=== PATIENT | female | born 1930 | race African-American/Black ===

== ENCOUNTER 2016-05-09 10:29 | Inpatient (IN) | payer OTHER, BC, MEDICAID ==
[~2016-05-09] VITALS: Ht 152.4 cm; Wt 61.2 kg
[2016-05-09] MEDS ORDERED: METHYLPREDNISOLONE SOD SUCC 125 MG/2 ML VIAL IV STA (11:27)
[2016-05-09] MEDS ORDERED: IPRATROPIUM BROMIDE (0.02%) 0.5MG/2.5ML NEB HHN STA (11:27)
[2016-05-09] MEDS ORDERED: ALBUTEROL (0.083%) 2.5MG/3ML NEB HHN STA (11:27)
[2016-05-09] MEDS ORDERED: IOHEXOL-350 100 ML BOTTLE ONE (11:37)
[2016-05-09] MEDS ORDERED: SODIUM CHLORIDE 0.9% 10ML VIAL ONE (11:37)
[2016-05-09 11:50] LABS: BASOPHILS % 0.6 % (0.0-2.0); EOSINOPHILS % 0.2 % (0.0-5.0); HEMATOCRIT. 39.1 % (36.0-48.0); HEMOGLOBIN. 12.5 g/dL (12.0-16.0); LYMPHOCYTES % 9.3 % (20.0-50.0); MEAN CORPUSCULAR HEMOGLOBIN 26.9 pg (28.0-32.0); MEAN CORPUSCULAR HGB CONC 31.8 g/dL (31.0-37.0); MEAN CORPUSCULAR VOLUME 84.4 fL (81.0-99.0); MEAN PLATELET VOLUME 8.5 fl (7.4-10.4); MONOCYTES % 8.9 % (2.0-8.0); PLATELET 393 x1000/uL (130-400); RED BLOOD CELL COUNT 4.64 mill/uL (4.2-5.4); RED CELL DISTRIBUTION WIDTH 16.4 % (11.6-14.6); WHITE BLOOD COUNT 17.1 x1000/uL (4.5-11.0)
[2016-05-09 11:55] LABS: BG BASE EXCESS -4.9 mmol/L (-2.0-2.0); BG CARBOXYHEMOGLOBIN 0.9 % (0.5-1.5); BG DEOXYHEMOGLOBIN 10.6 % (0.0-5.0); BG FRACTION INSPIRED OXYGEN 21; BG HCO3 ACT 18.3 mmol/L (22.0-26.0); BG METHEMOGLOBIN 0.2 % (0.0-1.5); BG OXYGEN SATURATION 89.3 % (92.0-98.5); BG OXYHEMOGLOBIN 88.3 % (94.0-97.0); BG PCO2 28.8 mmHg (35.0-45.0); BG PO2 56.1 mmHg (75.0-100.0); BG SAMPLE SITE RIGHT RADIAL; BG TOTAL HEMOGLOBIN 13.5 g/dL (12.0-18.0); BG VENT MODE ROOM AIR
[2016-05-09 12:08] LABS: ALANINE AMINOTRANSFERASE 17 IU/L (13-61); ALBUMIN 2.5 g/dL (3.4-5.0); ANION GAP 17; CALCIUM 9.1 mg/dL (8.5-10.1); CARBON DIOXIDE 22 mEq/L (21-32); CHLORIDE 105 mEq/L (98-107); ETHANOL BLOOD < 10 mg/dL; INDEX HEMOLYSI 2 (1-3); INDEX ICTERIC 1 (1-4); INDEX LIPEMIC 1 (1-3); NT PRO B-TYPE NATRIURETIC PEP 1007 pg/mL (5-125); TROPONIN I < 0.02 ng/mL (0.00-0.04); UREA NITROGEN BLOOD 16 mg/dL (7-21); eGFR > 60 mL/min (>60)
[2016-05-09 12:30] LABS: D-DIMER 3.43 mg/L FEU (<0.50); INR 1.2; PROTHROMBIN TIME 12.8 sec
[2016-05-09 14:00] LABS: *AMPHETAMINES SCREEN URINE NEGATIVE (NEGATIVE); *BARBITURATES SCREEN URINE PRESUMTIVE POSITIVE (NEGATIVE); *BENZODIAZEPINES SCREEN URINE NEGATIVE (NEGATIVE); *COCAINE SCREEN URINE NEGATIVE (NEGATIVE); CANNABINOID URINE SCREEN NEGATIVE (NEGATIVE); ECSTASY MDMA SCREEN URINE NEGATIVE (NEGATIVE); METHADONE URINE SCREEN NEGATIVE (NEGATIVE); OPIATES URINE SCREEN PRESUMTIVE POSITIVE (NEGATIVE); PHENCYCLIDINE URINE SCREEN NEGATIVE (NEGATIVE)
[2016-05-09] MEDS ORDERED: LEVOFLOXACIN 750MG PREMIX 150 ML IV NR (15:15)
[2016-05-09] MEDS ORDERED: ALBUTEROL (0.5%) 2.5MG/0.5ML NEB HHN ONE (18:00)
[2016-05-09 20:40] VITALS: BP 131/89
[2016-05-09] MEDS ORDERED: VANCOMYCIN 1 G PREMIX 200 ML IV SCH (21:30)
[2016-05-09] MEDS ORDERED: ACETAMINOPHEN 325MG TABLET PO PRN (21:30)
[2016-05-09] MEDS ORDERED: ONDANSETRON HCL 4MG/2ML VIAL IV PRN (21:30)
[2016-05-09] MEDS ORDERED: CLONIDINE 0.1MG TABLET PO PRN (21:30)
[2016-05-09] MEDS ORDERED: HYDROCODONE/ACETAMINOPHEN 5/325MG TABLET PO PRN (21:30)
[2016-05-09] MEDS: ENOXAPARIN 40MG/0.4ML SYR SUBCUT SCH (22:15)
[2016-05-09] MEDS ORDERED: VANCOMYCIN 1250MG in DEXTROSE 5% WATER 250ML IV NR (23:00)
[2016-05-09] MEDS: IPRATROPIUM/ALBUTEROL 0.5-3(2.5)MG/3ML NEB INH PRN (23:36)
[2016-05-09 23:49] VITALS: BP 112/92
[2016-05-10 00:05] LABS: ANION GAP 16; CALCIUM 8.9 mg/dL (8.5-10.1); CARBON DIOXIDE 22 mEq/L (21-32); CHLORIDE 101 mEq/L (98-107); CREATINE KINASE 243 IU/L (26-192); INDEX HEMOLYSI 4 (1-3); INDEX ICTERIC 1 (1-4); INDEX LIPEMIC 1 (1-3); TROPONIN I < 0.02 ng/mL (0.00-0.04); UREA NITROGEN BLOOD 20 mg/dL (7-21); eGFR > 60 mL/min (>60)
[2016-05-10] MEDS ORDERED: INFLUENZA VIRUS VACCINE 0.5ML SYR IM ONE (00:15)
[2016-05-10] MEDS ORDERED: PNEUMOCOCCAL 23-VAL P-SAC VAC 0.5 ML IM ONE (00:15)
[2016-05-10] MEDS ORDERED: ATOR40TA70 PO (01:12)
[2016-05-10] MEDS ORDERED: RISP0.2514 PO (01:12)
[2016-05-10] MEDS ORDERED: [UNRECOGNIZED DRUG - REMARK] (01:12)
[2016-05-10] MEDS ORDERED: SULI200T4 PO (01:12)
[2016-05-10] MEDS: IPRATROPIUM/ALBUTEROL 0.5-3(2.5)MG/3ML NEB INH PRN ×2 (03:51→08:22)
[2016-05-10 04:00] VITALS: BP 141/104
[2016-05-10 06:33] LABS: HEMATOCRIT. 36.6 % (36.0-48.0); HEMOGLOBIN. 11.8 g/dL (12.0-16.0); MEAN CORPUSCULAR HEMOGLOBIN 26.7 pg (28.0-32.0); MEAN CORPUSCULAR HGB CONC 32.3 g/dL (31.0-37.0); MEAN CORPUSCULAR VOLUME 82.7 fL (81.0-99.0); MEAN PLATELET VOLUME 7.9 fl (7.4-10.4); PLATELET 372 x1000/uL (130-400); RED BLOOD CELL COUNT 4.43 mill/uL (4.2-5.4); WHITE BLOOD COUNT 16.7 x1000/uL (4.5-11.0)
[2016-05-10 07:14] LABS: CREATINE KINASE 361 IU/L (26-192); INDEX HEMOLYSI 2 (1-3); INDEX ICTERIC 1 (1-4); INDEX LIPEMIC 1 (1-3); LDL CHOLESTEROL 70 mg/dL (5-100); TRIGLYCERIDE 94 mg/dL (0-150)
[2016-05-10 07:16] LABS: DIFFERENTIAL COMMENT 1
[2016-05-10 07:21] LABS: HDL CHOLESTEROL 56 mg/dL (40-59); TROPONIN I < 0.02 ng/mL (0.00-0.04)
[2016-05-10 07:33] LABS: T4 FREE 1.02 ng/dL (0.76-1.46)
[2016-05-10 08:19] VITALS: BP 159/99
[2016-05-10 11:24] LABS: PLATELET ESTIMATE NORMAL
[2016-05-10] MEDS ORDERED: SODIUM BICARBONATE 4.2% 5 MEQ/10 ML DISP.SYRIN IV ONE (14:36)
[2016-05-10 17:18] LABS: INDEX HEMOLYSI 4 (1-3)
[2016-05-10 17:32] LABS: BG BASE EXCESS -1.2 mmol/L (-2.0-2.0); BG CARBOXYHEMOGLOBIN 0.2 % (0.5-1.5); BG DEOXYHEMOGLOBIN 16.7 % (0.0-5.0); BG HCO3 ACT 21.6 mmol/L (22.0-26.0); BG METHEMOGLOBIN 0.2 % (0.0-1.5); BG OXYGEN SATURATION 83.2 % (92.0-98.5); BG OXYHEMOGLOBIN 82.9 % (94.0-97.0); BG PCO2 30.6 mmHg (35.0-45.0); BG PH 7.467 (7.350-7.450); BG SAMPLE SITE RIGHT BRACHIAL; BG TOTAL HEMOGLOBIN 12.1 g/dL (12.0-18.0); BG VENT MODE ROOM AIR
[2016-05-10] MEDS: VANCOMYCIN 750 MG PREMIX 150 ML IV SCH (17:37)
[2016-05-10 20:00] VITALS: BP 97/52
[2016-05-10 20:10] VITALS: BP 141/93
[2016-05-10] MEDS: ENOXAPARIN 40MG/0.4ML SYR SUBCUT SCH (22:00)
[2016-05-11] VITALS (7 sets, daily range): BP systolic 96–134; BP diastolic 70–93
[2016-05-11 06:09] LABS: BASOPHILS % 0.2 % (0.0-2.0); HEMATOCRIT. 36.4 % (36.0-48.0); HEMOGLOBIN. 11.6 g/dL (12.0-16.0); MEAN CORPUSCULAR HEMOGLOBIN 26.1 pg (28.0-32.0); MEAN CORPUSCULAR VOLUME 81.5 fL (81.0-99.0); MEAN PLATELET VOLUME 7.8 fl (7.4-10.4); MONOCYTES % 13.2 % (2.0-8.0); NEUTROPHILS % 77.6 % (40.0-76.0); PLATELET 363 x1000/uL (130-400); RED BLOOD CELL COUNT 4.46 mill/uL (4.2-5.4); RED CELL DISTRIBUTION WIDTH 15.9 % (11.6-14.6); WHITE BLOOD COUNT 16.8 x1000/uL (4.5-11.0)
[2016-05-11 06:19] LABS: ANION GAP 15; CALCIUM 8.6 mg/dL (8.5-10.1); CARBON DIOXIDE 25 mEq/L (21-32); CHLORIDE 99 mEq/L (98-107); INDEX HEMOLYSI 1 (1-3); INDEX ICTERIC 1 (1-4); INDEX LIPEMIC 1 (1-3); UREA NITROGEN BLOOD 21 mg/dL (7-21); eGFR > 60 mL/min (>60)
[2016-05-11] MEDS: VANCOMYCIN 750 MG PREMIX 150 ML IV SCH (12:23)
[2016-05-11] MEDS ORDERED: LEVOFLOXACIN 750MG PREMIX 150 ML IV SCH (16:00)
[2016-05-11] MEDS: ENOXAPARIN 40MG/0.4ML SYR SUBCUT SCH (21:05)
[2016-05-11] MEDS: IPRATROPIUM/ALBUTEROL 0.5-3(2.5)MG/3ML NEB INH PRN (22:09)
== END 2016-05-11 23:38 | disposition short-term general hospital (02) | DRG 871 ==
LOC: ER 10:43 → 7WST 12:14
PROVIDERS: ADMIT Internal Medicine; ATTEND Internal Medicine
PROC: 0W9B3ZX Drainage of Left Pleural Cavity, Percutaneous Approach, Diagnostic (ICD-10-PCS; principal; 2016-05-10)
PROC: 02HV33Z Insertion of Infusion Device into Superior Vena Cava, Percutaneous Approach (ICD-10-PCS; 2016-05-10)
PROC: B548ZZA Ultrasonography of Superior Vena Cava, Guidance (ICD-10-PCS; 2016-05-10)
DX: A41.9 Sepsis, unspecified organism (principal); J96.01 Acute respiratory failure with hypoxia; J90 Pleural effusion, not elsewhere classified; I10 Essential (primary) hypertension; J44.9 Chronic obstructive pulmonary disease, unspecified; Z88.0 Allergy status to penicillin
CPT/HCPCS: 32555; 36415; 36569; 36600; 71010; 71275; 76937; 80048; 80053; 80061; 80305; 82375; 82550; 82805; 83036; 83615; 83880; 84439; 84443; 84484; 85025; 85379; 85610; 87040; 87070; 87205; 87804; 88108; 88312; 90686; 90732; 93005; 94640; 94664; 96365; 96375; 99285; A4216; C1725; C1893; G0482; J1650; J1956; J2405; J2930; J3370; J3490; J7040; J7060; J7611; J7620; Q9967